=== PATIENT | female | born 1940 | race Caucasian/White ===

== ENCOUNTER 2021-02-27 12:39 | Outpatient (CLI) | payer MEDICARE | END 2021-02-27 23:59 | disposition home or self-care (01) | LOC: 64 CT 12:39 | PROVIDERS: ATTEND Family Medicine | DX: R09.1 Pleurisy (principal) | CPT/HCPCS: 71250 ==

== ENCOUNTER 2024-04-02 09:29 | Emergency (ER) | payer MEDICARE ==
[~2024-04-02] VITALS: Ht 165.1 cm; Wt 78.5 kg
[2024-04-02 10:29] VITALS: TEMP 98.4
[2024-04-02 12:14] LABS: BILIRUBIN,URINE NEGATIVE (Neg); CLARITY,URINE CLEAR (Clear); COLOR,URINE YELLOW (Yellow); GLUCOSE, URINE NEGATIVE (Neg); KETONES,URINE NEGATIVE (Neg); LEUKOCYTE ESTERASE ,URINE NEGATIVE (Neg); NITRITES, URINE NEGATIVE (Neg); OCCULT BLOOD,URINE NEGATIVE (Neg); PH,URINE 6.5 (4.8-8.0); PROTEIN,URINE NEGATIVE (Neg); UROBILINOGEN,URINE 0.2 E.U/dL (0.2-1.0)
[2024-04-02 12:15] LABS: UA COLLECTION TYPE NON-SPECIFIED
[2024-04-02] MEDS: morphine 4 MG/ML inj SYRINge IV ONE ×2 (12:25→14:43)
[2024-04-02] MEDS: normal saline 1000ML IV soln IVB ONE (12:25)
[2024-04-02] MEDS: ondansetron/PF 4mg/2ml inj IV ONE (12:25)
[2024-04-02] MEDS ORDERED: baclofen 10mg tablet PO PRN (14:30)
[2024-04-02] MEDS: acetaminophen 325mg tablet PO ONE (14:44)
[2024-04-02] MEDS: ketorolac trometh 15mg/ml vial 15 MG/ML ML IV ONE (14:44)
[2024-04-02 15:44] LABS: BASOPHILS % (AUTO) 0.3 % (0-1); EOSINOPHILS # (AUTO) 0.1 X10'3 (0-0.9); EOSINOPHILS % (AUTO) 1.7 % (0-6); HEMATOCRIT 37.8 % (35.0-45.0); HEMOGLOBIN 12.8 g/dl (12.0-16.0); LYMPHOCYTES # (AUTO) 1.9 X10'3 (1.1-4.8); LYMPHOCYTES % (AUTO) 27.4 % (21-51); MEAN CORPUSCULAR HEMOGLOBIN 29.6 PG (27.0-31.0); MEAN CORPUSCULAR HGB CONC 33.8 g/dL (33.0-36.5); MEAN CORPUSCULAR VOLUME 87.5 FL (78-98); MEAN PLATELET VOLUME 6.9 FL (7.4-10.4); MONOCYTES # (AUTO) 0.5 X10'3 (0-0.9); MONOCYTES % (AUTO) 6.8 % (2-12); NEUTROPHILS # (AUTO) 4.5 X10'3 (1.8-7.7); NEUTROPHILS % (AUTO) 63.8 % (42-75); PLATELET COUNT 310 X10'3 (140-440); RED BLOOD COUNT 4.32 X10'6 (4.20-5.60); RED CELL DISTRIBUTION WIDTH 13.8 % (11.5-14.5); WHITE BLOOD COUNT 7.1 X10'3 (4.5-11.0)
[2024-04-02 15:52] LABS: ALANINE AMINOTRANSFERASE 19 U/L (12-78); ALBUMIN 3.5 G/DL (3.4-5.0); ALBUMIN/GLOBULIN RATIO 1.2 (1.1-1.5); ALKALINE PHOSPHATASE 82 IU/L (46-116); ANION GAP 8 (8-16); ASPARTATE AMINO TRANSFERASE 22 U/L (10-37); BILIRUBIN,TOTAL 0.5 MG/DL (0.1-1.0); BLOOD UREA NITROGEN 15 MG/DL (7-18); BUN/CREATININE RATIO 18.3 (10.0-20.0); CALCIUM 9.2 MG/DL (8.5-10.1); CHLORIDE 105 MMOL/L (99-107); CREATININE 0.82 MG/DL (0.40-0.90); GLUCOSE 92 MG/DL (70-104); POTASSIUM 3.9 MMOL/L (3.5-5.1); SODIUM 142 MMOL/L (135-145); TOTAL PROTEIN 6.5 G/DL (6.4-8.2); eCRCL 45 ML/MIN; eGFR 66 ML/MIN
[2024-04-02] MEDS ORDERED: GABA-530 PO (16:11)
[2024-04-02] MEDS ORDERED: NAPR-56 PO (16:11)
[2024-04-02] MEDS ORDERED: TIZA4CAP PO (16:11)
[2024-04-02 16:15] VITALS: BP 145/76; PULSE 68; RESP 16; O2SAT 98
== END 2024-04-02 16:21 | disposition home or self-care (01) ==
LOC: ER 09:30
DX: M54.50 Low back pain, unspecified (principal); Z88.7 Allergy status to serum and vaccine; Z79.899 Other long term (current) drug therapy; Z79.1 Long term (current) use of non-steroidal anti-inflammatories (NSAID); Z87.442 Personal history of urinary calculi
CPT/HCPCS: 36415; 73502; 74176; 80053; 81003; 85025; 96361; 96374; 96375; 96376; 99285; J1885; J2270; J2405; J7030